=== PATIENT | male | born 1980 | race Caucasian/White ===

== ENCOUNTER 2016-07-16 18:39 | Emergency (ER) | payer OTHER ==
[2016-07-16 18:42] VITALS: BP 145/96; PULSE 79; RESP 15; TEMP 98.5; O2SAT 97
[2016-07-16] MEDS ORDERED: KETOROLAC TROMETHAMINE 60 MG/2 ML (IM) VIAL IM ONE (20:00)
[2016-07-16] MEDS ORDERED: ORPHENADRINE INJ 60 MG/2 ML AMP IM ONE (20:00)
--- NOTE | 2016-07-16 20:00 | PD ---
HPI Chief Complaint: Back/ Neck Pain or Injury Time Seen by Provider: 19:40 Travel History International Travel<30 days: No Contact w/Intl Traveler<30days: No Traveled to known affect area: No History of Present Illness HPI 35-year-old male presents to the emergency room for evaluation of left-sided low back pain that started 4 days ago. He states it improved and had no pain yesterday but upon lifting a bag of luggage today exacerbated his symptoms. Symptoms are sharp in nature. He has taken Aleve and ibuprofen without significant relief in symptoms. No radiation. No saddle anesthesia, loss of bowel or bladder control, or paresthesias. Denies IV drug use, weight loss, chills. Denies dysuria, urgency, frequency, and hematuria. No chronic medical conditions are daily medications. PFSH Past Medical History Medical History: Denies Significant Hx Diminished Hearing: No Tetanus Vaccination: < 5 Years Influenza Vaccination: No ?: Not Past Surgical History Surgical History: No Previous Surgery Social History Alcohol Use: No Tobacco Use: No Substance Use: No Allergies-Medications (Allergen,Severity, Reaction): Coded Allergies: No Known Allergies (Unverified , 07/16/16) Reported Meds & Prescriptions Reported Meds & Active Scripts Active Prednisone 20 Mg Tab 40 Mg PO DAILY Take 40 mg (2 tablets) daily for 5 days Ibuprofen 800 Mg Tab 800 Mg PO Q8H PRN Robaxin (Methocarbamol) 750 Mg Tab 750 Mg PO Q6HR Review of Systems Except as stated in HPI: all other systems reviewed are Neg Physical Exam Narrative GENERAL: Well-nourished, well-developed male in no acute distress. Afebrile. Ambulatory. SKIN: Focused skin assessment warm/dry. HEAD: Normocephalic. EYES: No scleral icterus. No injection or drainage. NECK: Supple, trachea midline. No JVD or lymphadenopathy. CARDIOVASCULAR: Regular rate and rhythm without murmurs, gallops, or rubs. RESPIRATORY: Breath sounds equal bilaterally. No accessory muscle use. BACK: No CVA tenderness. No rash. No point tenderness on palpation of the spine. Tenderness to palpation of the left lower paraspinous musculature. Positive straight leg raise on the left. 2+ Achilles and patellar reflexes are equal bilaterally. Data Data Last Documented VS Vital Signs Date Time Temp Pulse Resp B/P Pulse Ox O2 Delivery O2 Flow Rate FiO2 07/16/16 18:42 98.5 79 15 145/96 97 Orders Orphenadrine Inj (Norflex Inj) (07/16/16 20:00) Ketorolac Inj (Toradol Inj) (07/16/16 20:00) [facility] Medical Decision Making Medical Screen Exam Complete: Yes Emergency Medical Condition: Yes Medical Record Reviewed: Yes Differential Diagnosis Back strain versus spasm versus fracture versus dislocation Narrative Course 35-year-old male presents to the emergency room for evaluation of left-sided low back pain. Pain is worse with range of motion. Started after lifting heavy luggage. No red flag symptoms. No midline tenderness. No focal neurological deficits. Positive straight leg raise. Patellar and Achilles reflexes are equal bilaterally. Patient has been ambulatory since onset of symptoms. He'll be given Toradol and Norflex in the emergency room. Discharged with prescriptions for ibuprofen and Robaxin. Patient to follow up with a primary care physician if symptoms persist. Told to return to the emergency room for worsening symptoms. He understands and agrees to this plan. Diagnosis Primary Impression: Lumbar back sprain Qualified Code: S33.5XXA - Lumbar back sprain, initial encounter Referrals: Primary Care Physician Patient Instructions: General Instructions, Low Back Strain (ED) Departure Forms: Tests/Procedures, Work Release Enter return to work date: July 18, 2016 Additional Instructions: Rest and drink plenty of fluids. Prednisone as directed, until gone. Take Robaxin as directed, as needed for pain. Take ibuprofen with food as directed, as needed for pain. Apply ice to the affected area for 20 minutes at a time, as needed for pain and swelling. Follow-up with a primary care physician. Return to the emergency room for worsening symptoms. Med/Other Pt SpecificInfo: Prescription(s) given Scripts Prednisone 20 Mg Tab40 Mg PO DAILY #10 TAB Ref 0 Take 40 mg (2 tablets) daily for 5 days Prov:Josiah Vaughn MD 07/16/16 Ibuprofen 800 Mg [id number] Mg PO Q8H PRN (Pain/Inflammation) #21 TAB Ref 0 Prov:Josiah Vaughn MD 07/16/16 Methocarbamol (Robaxin)750 Mg [id number] Mg PO Q6HR #21 TAB Ref 0 Prov:Josiah Vaughn MD 07/16/16 Disposition: 01 DISCHARGE HOME Condition: Stable Sanam Degroot July 16, 2016 20:00
[2016-07-16] MEDS ORDERED: IBUP800T23 PO (20:01)
[2016-07-16] MEDS ORDERED: PRED20 PO (20:01)
[2016-07-16] MEDS ORDERED: ROBA750T PO (20:01)
== END 2016-07-16 20:10 | disposition home or self-care (01) ==
LOC: PHEFT 18:39
DX: S33.5XXA Sprain of ligaments of lumbar spine, initial encounter (principal); X50.0XXA Overexertion from strenuous movement or load, initial encounter; Y93.89 Activity, other specified; Y92.9 Unspecified place or not applicable; Y99.8 Other external cause status
CPT/HCPCS: 96372; 99283; J1885; J2360